=== PATIENT | female | born 1940 | race Caucasian/White ===

== ENCOUNTER 2021-05-11 18:27 | Inpatient (IN) ==
[2021-05-11] MEDS ORDERED: Gelfoam 12-7 ADSORBABL SPONGE TOPICAL ONE (19:04)
[2021-05-11 20:13] LABS: ABS Lymphocytes 0.3 10^3/ul (1.0-4.8); ABS Monocytes 0.3 10^3/ul (0-0.8); ABS Neutrophils 11.4 10^3/ul (1.5-7.7); Hematocrit 23 % (35-47); Hemoglobin 7.3 g/dL (12.0-16.0); Lymphocyte % 2.1 %; Mean Corpuscular HGB Conc 32 g/dL (31-36); Mean Corpuscular Hemoglobin 28 pg (27-31); Mean Corpuscular Volume 87 fL (80-97); Mean Platelet Volume 7.8 fL (7.4-10.4); Platelet Count 264 10^3/uL (150-450); Red Blood Count 2.64 10^6 /uL (3.70-4.87); Red Cell Distribution Width 19 % (10-15)
[2021-05-11] MEDS ORDERED: Furosemide 20 mg/2 ml IV VIAL IV SLOW PU ONE (21:47)
[2021-05-11 21:50] LABS: Calcium 8.3 mg/dL (8.6-10.3); Potassium 4.3 mmol/L (3.5-5.0); eGFR CKD-EPI 44.4 (>60)
[2021-05-11 22:55] LABS: Hematocrit 22 % (35-47); Hemoglobin 6.9 g/dL (12.0-16.0)
[2021-05-12 00:40] LABS: Albumin/Globulin Ratio 1.5 (1-3); Direct Bilirubin 2.6 mg/dL (0.03-0.18); Total Bilirubin 4.2 mg/dL (0.2-1.0)
[2021-05-12 00:41] LABS: C Reactive Protein 19.7 mg/L (<8.01); Indirect Bilirubin 1.6 mg/dL (0.3-1.0)
[2021-05-12 00:59] LABS: Ferritin 173.1 ng/mL (11-307)
[2021-05-12] MEDS ORDERED: Albuterol HFA INHALER 8 gm MDI INH PRN (02:23)
[2021-05-12 04:51] LABS: TSH Ultra Thyroid Stim Horm 3.05 mcIU/mL (0.34-5.60)
[2021-05-12] MEDS ORDERED: Dextrose 50% Syringe 50 ml 25 GM/50 ML SYRINGE IV PUSH PRN (05:29)
[2021-05-12 06:38] LABS: Hematocrit 25 % (35-47)
[2021-05-12 07:01] LABS: Albumin/Globulin Ratio 1.6 (1-3); Calcium 8.1 mg/dL (8.6-10.3); Globulin 1.9 g/dL (2-4); Potassium 3.9 mmol/L (3.5-5.0); Total Bilirubin 4.7 mg/dL (0.2-1.0); Total Protein 4.9 g/dL (6.4-8.9); eGFR CKD-EPI 40.1 (>60)
[2021-05-12 07:30] LABS: Corrected Retic Count 1.3 % (0.5-1.5); Hematocrit for Retic CNT 25 % (35-47); Immature Retic Fraction 0.52; RBC Retic Count 2.83 10^6/uL (3.70-4.87)
[2021-05-12 07:34] LABS: INR 1.16 (0.86-1.15)
[2021-05-12 07:51] LABS: Urine Appearance Turbid; Urine Bilirubin Negative (Negative); Urine Blood Negative (Negative); Urine Color Amber; Urine Glucose Negative (Negative); Urine Ketones Negative (Negative); Urine Nitrite Negative (Negative); Urine Protein 2+(100 mg/dL) (Negative); Urine Specific Gravity 1.016 (1.002-1.030); Urine Urobilinogen Negative (Negative)
[2021-05-12 08:01] LABS: Urine Bacteria 2+ (Absent); Urine Red Blood Cell 2+(6-10/hpf) (Absent); Urine Squamous Epithelial Cell Present (Absent); Urine White Blood Cell 3+(>20/hpf) (Absent)
[2021-05-12 12:31] LABS: Hepatitis B Surface Antigen Nonreactive (Nonreactive)
[2021-05-12 12:36] LABS: Hepatitis A Ab IgM Negative (Negative)
[2021-05-12 12:37] LABS: Hepatitis B Core IgM Nonreactive (Nonreactive)
[2021-05-12 12:48] LABS: Hepatitis C Antibody Negative (Negative)
[2021-05-12 14:28] LABS: Hematocrit 25 % (35-47)
[2021-05-12] MEDS ORDERED: Iodixanol (CONTRAST) 320 MG/ML 100 ML SDV IV ONE (16:01)
[2021-05-12 20:11] LABS: Hematocrit 24 % (35-47); Hemoglobin 7.6 g/dL (12.0-16.0)
[2021-05-12] MEDS ORDERED: NS 0.9% 1000 ml BAG 1,000 ML IV SCH (21:00)
[2021-05-13 02:07] LABS: Hematocrit 21 % (35-47); Hemoglobin 6.6 g/dL (12.0-16.0)
[2021-05-13] MEDS ORDERED: Morphine 2 MG/ML SYRINGE IV PRN (05:42)
[2021-05-13 09:36] LABS: ABS Eosinophils 0.1 10^3/ul (0-0.6); ABS Lymphocytes 0.8 10^3/ul (1.0-4.8); ABS Monocytes 0.7 10^3/ul (0-0.8); ABS Neutrophils 10.1 10^3/ul (1.5-7.7); Eosinophil % 0.6 %; Hematocrit 26 % (35-47); Hemoglobin 8.4 g/dL (12.0-16.0); Mean Corpuscular HGB Conc 32 g/dL (31-36); Mean Corpuscular Hemoglobin 28 pg (27-31); Mean Corpuscular Volume 87 fL (80-97); Mean Platelet Volume 7.7 fL (7.4-10.4); Nucleated Red Blood Cells % 0.1; Platelet Count 242 10^3/uL (150-450); Red Blood Count 2.98 10^6 /uL (3.70-4.87); Red Cell Distribution Width 18 % (10-15); White Blood Count 11.7 10^3/uL (3.5-10.8)
[2021-05-13 09:52] LABS: Albumin 2.9 g/dL (3.2-5.2); Albumin/Globulin Ratio 1.6 (1-3); Globulin 1.8 g/dL (2-4); Potassium 3.5 mmol/L (3.5-5.0); Total Bilirubin 4.7 mg/dL (0.2-1.0); Total Protein 4.7 g/dL (6.4-8.9); eGFR CKD-EPI 43.2 (>60)
[2021-05-13 15:25] LABS: % Iron Saturation 22 % (14 - 50); Total Iron Binding Capacity 274 mcg/dL (250 - 400)
[2021-05-14 06:10] LABS: ABS Basophils 0.1 10^3/ul (0-0.2); ABS Lymphocytes 0.6 10^3/ul (1.0-4.8); ABS Monocytes 0.6 10^3/ul (0-0.8); ABS Neutrophils 8.6 10^3/ul (1.5-7.7); Eosinophil % 0.5 %; Hematocrit 25 % (35-47); Hemoglobin 8.1 g/dL (12.0-16.0); Lymphocyte % 6.2 %; Mean Corpuscular HGB Conc 33 g/dL (31-36); Mean Corpuscular Hemoglobin 29 pg (27-31); Mean Corpuscular Volume 88 fL (80-97); Mean Platelet Volume 8.2 fL (7.4-10.4); Nucleated Red Blood Cells % 0.2; Platelet Count 237 10^3/uL (150-450); Red Blood Count 2.86 10^6 /uL (3.70-4.87); Red Cell Distribution Width 18 % (10-15); White Blood Count 9.9 10^3/uL (3.5-10.8)
[2021-05-14 06:26] LABS: Albumin 2.8 g/dL (3.2-5.2); Albumin/Globulin Ratio 1.6 (1-3); Calcium 7.9 mg/dL (8.6-10.3); Direct Bilirubin 3.6 mg/dL (0.03-0.18); Globulin 1.7 g/dL (2-4); Potassium 3.7 mmol/L (3.5-5.0); Total Bilirubin 5.6 mg/dL (0.2-1.0); Total Protein 4.5 g/dL (6.4-8.9); eGFR CKD-EPI 48.2 (>60)
[2021-05-14] MEDS ORDERED: Potassium Chlor 10 meq TAB PO ONE (08:58)
[2021-05-14] MEDS: Cefepime 1 GM in Dextrose 1 GM/50 ML BAG IV SCH ×2 (12:43→20:40)
[2021-05-14] MEDS: Furosemide 40 mg/4 ml IV VIAL IV SLOW PU SCH (16:54)
[2021-05-14 17:22] LABS: Anisocytosis 1+
[2021-05-14 17:25] LABS: Polychromasia 1+
[2021-05-14 18:26] LABS: INR 0.97 (0.86-1.15)
[2021-05-14 18:27] LABS: Activated Partial Thrombo Time 28.2 seconds (26.0-38.0); Fibrinogen 363.2 mg/dL (110.8-404.3)
[2021-05-14 18:41] LABS: Anaplasma phagocytophilum Negative (Negative); B. miyamotoi PCR, B Negative (Negative); Babesia divergens/MO-1 Negative (Negative); Babesia ducani Negative (Negative); Ehrlichia chaffeensis Negative (Negative); Ehrlichia ewingii/canis Negative (Negative); Ehrlichia muris eauclairensis Negative (Negative)
[2021-05-15 07:02] LABS: ABS Lymphocytes 0.7 10^3/ul (1.0-4.8); ABS Monocytes 0.5 10^3/ul (0-0.8); ABS Neutrophils 6.7 10^3/ul (1.5-7.7); Eosinophil % 0.3 %; Hematocrit 22 % (35-47); Hemoglobin 7.2 g/dL (12.0-16.0); Mean Corpuscular HGB Conc 33 g/dL (31-36); Mean Corpuscular Hemoglobin 29 pg (27-31); Mean Corpuscular Volume 88 fL (80-97); Mean Platelet Volume 7.9 fL (7.4-10.4); Nucleated Red Blood Cells % 0.1; Platelet Count 223 10^3/uL (150-450); Red Blood Count 2.47 10^6 /uL (3.70-4.87); Red Cell Distribution Width 18 % (10-15); White Blood Count 7.9 10^3/uL (3.5-10.8)
[2021-05-15 07:24] LABS: Albumin 2.6 g/dL (3.2-5.2); Albumin/Globulin Ratio 1.4 (1-3); Calcium 7.5 mg/dL (8.6-10.3); Globulin 1.9 g/dL (2-4); Indirect Bilirubin 2.1 mg/dL (0.3-1.0); Magnesium 1.7 mg/dL (1.9-2.7); Potassium 3.4 mmol/L (3.5-5.0); Total Bilirubin 5.1 mg/dL (0.2-1.0); Total Protein 4.5 g/dL (6.4-8.9); eGFR CKD-EPI 47.7 (>60)
[2021-05-15] MEDS: Furosemide 40 mg/4 ml IV VIAL IV SLOW PU SCH (09:27)
[2021-05-15] MEDS: Cefepime 1 GM in Dextrose 1 GM/50 ML BAG IV SCH ×2 (09:28→21:56)
[2021-05-15] MEDS ORDERED: Potassium Chlor 20 meq TAB.ER PO ONE (14:56)
[2021-05-16 06:13] LABS: Hematocrit 26 % (35-47); Hemoglobin 8.5 g/dL (12.0-16.0); Mean Corpuscular HGB Conc 33 g/dL (31-36); Mean Corpuscular Hemoglobin 28 pg (27-31); Mean Corpuscular Volume 87 fL (80-97); Mean Platelet Volume 7.4 fL (7.4-10.4); Platelet Count 244 10^3/uL (150-450); Red Blood Count 3.01 10^6 /uL (3.70-4.87); Red Cell Distribution Width 18 % (10-15); White Blood Count 8.5 10^3/uL (3.5-10.8)
[2021-05-16 06:30] LABS: Albumin 2.8 g/dL (3.2-5.2); Albumin/Globulin Ratio 1.5 (1-3); Calcium 7.7 mg/dL (8.6-10.3); Globulin 1.9 g/dL (2-4); Potassium 3.8 mmol/L (3.5-5.0); Total Bilirubin 5.1 mg/dL (0.2-1.0); Total Protein 4.7 g/dL (6.4-8.9); eGFR CKD-EPI 59.1 (>60)
[2021-05-16 06:36] LABS: Basophilic Stippling 1+; Polychromasia 1+
[2021-05-16 06:37] LABS: ABS Lymphocytes 0.8 10^3/ul (1.0-4.8); ABS Monocytes 0.5 10^3/ul (0-0.8); ABS Neutrophils 7.2 10^3/ul (1.5-7.7); Eosinophil % 0.4 %; Lymphocyte % 9.4 %; Nucleated Red Blood Cells % 0.1
[2021-05-16] MEDS ORDERED: Potassium Chlor 20 meq TAB.ER PO ONE (10:01)
[2021-05-16 10:26] LABS: Direct Bilirubin 2.7 mg/dL (0.03-0.18); Indirect Bilirubin 2.4 mg/dL (0.3-1.0); Magnesium 1.9 mg/dL (1.9-2.7)
[2021-05-16] MEDS: Furosemide 40 mg/4 ml IV VIAL IV SLOW PU SCH (10:30)
[2021-05-16] MEDS: Cefepime 1 GM in Dextrose 1 GM/50 ML BAG IV SCH ×2 (10:30→22:49)
[2021-05-16] MEDS ORDERED: Magnesium CITRATE LIQ 300 ML BTL PO ONE (18:26)
[2021-05-17 05:06] LABS: ABS Lymphocytes 0.4 10^3/ul (1.0-4.8); ABS Monocytes 0.4 10^3/ul (0-0.8); ABS Neutrophils 8.2 10^3/ul (1.5-7.7); Eosinophil % 0.1 %; Hematocrit 26 % (35-47); Hemoglobin 8.4 g/dL (12.0-16.0); Lymphocyte % 4.7 %; Mean Corpuscular HGB Conc 33 g/dL (31-36); Mean Corpuscular Hemoglobin 29 pg (27-31); Mean Corpuscular Volume 88 fL (80-97); Mean Platelet Volume 7.4 fL (7.4-10.4); Nucleated Red Blood Cells % 0.2; Platelet Count 242 10^3/uL (150-450); Red Blood Count 2.91 10^6 /uL (3.70-4.87); Red Cell Distribution Width 18 % (10-15); White Blood Count 9.1 10^3/uL (3.5-10.8)
[2021-05-17 05:23] LABS: Albumin 2.8 g/dL (3.2-5.2); Albumin/Globulin Ratio 1.5 (1-3); C Reactive Protein 16.99 mg/L (<8.01); Calcium 7.6 mg/dL (8.6-10.3); Direct Bilirubin 2.7 mg/dL (0.03-0.18); Globulin 1.9 g/dL (2-4); Magnesium 1.9 mg/dL (1.9-2.7); Phosphorus 2.8 mg/dL (2.5-5.0); Total Bilirubin 4.7 mg/dL (0.2-1.0); Total Protein 4.7 g/dL (6.4-8.9); eGFR CKD-EPI 65.5 (>60)
[2021-05-17] MEDS: Furosemide 40 mg/4 ml IV VIAL IV SLOW PU SCH (10:03)
[2021-05-17] MEDS: Cefepime 1 GM in Dextrose 1 GM/50 ML BAG IV SCH ×2 (10:04→21:25)
[2021-05-17 11:20] LABS: Coagulation Factor XI 119 % (55 - 150)
[2021-05-17 12:06] LABS: Coagulation Factor VIII Activi 361 % (55 - 200)
[2021-05-17 15:48] LABS: Coagulation F VIII Activity 368 % (55 - 200); von Willebrand Factor Activity 388 % (55 - 200)
[2021-05-17 20:56] LABS: Mitochondria M2 Antibody <0.1 U
[2021-05-18 07:21] LABS: ABS Lymphocytes 0.9 10^3/ul (1.0-4.8); ABS Monocytes 0.5 10^3/ul (0-0.8); ABS Neutrophils 6.8 10^3/ul (1.5-7.7); Eosinophil % 0.4 %; Hematocrit 26 % (35-47); Hemoglobin 8.5 g/dL (12.0-16.0); Lymphocyte % 10.6 %; Mean Corpuscular HGB Conc 32 g/dL (31-36); Mean Corpuscular Hemoglobin 29 pg (27-31); Mean Corpuscular Volume 89 fL (80-97); Mean Platelet Volume 7.6 fL (7.4-10.4); Platelet Count 236 10^3/uL (150-450); Red Blood Count 2.94 10^6 /uL (3.70-4.87); Red Cell Distribution Width 18 % (10-15); White Blood Count 8.1 10^3/uL (3.5-10.8)
[2021-05-18 07:39] LABS: ALT 324 U/L (7-52); AST 257 U/L (13-39); Albumin 2.9 g/dL (3.2-5.2); Albumin/Globulin Ratio 1.5 (1-3); Alkaline Phosphatase 870 U/L (35-149); Blood Urea Nitrogen 18 mg/dL (6-24); Calcium 7.9 mg/dL (8.6-10.3); Chloride 90 mmol/L (101-111); Globulin 1.9 g/dL (2-4); Glucose 87 mg/dL (70-100); Indirect Bilirubin 2.1 mg/dL (0.3-1.0); Magnesium 1.9 mg/dL (1.9-2.7); Potassium 3.7 mmol/L (3.5-5.0); Sodium 138 mmol/L (135-145); Total Protein 4.8 g/dL (6.4-8.9); eGFR CKD-EPI 90.7 (>60)
[2021-05-18 08:02] LABS: CO2 Carbon Dioxide 46 mmol/L (22-32)
[2021-05-18] MEDS: Furosemide 40 mg/4 ml IV VIAL IV SLOW PU SCH (11:05)
[2021-05-18] MEDS: Cefepime 1 GM in Dextrose 1 GM/50 ML BAG IV SCH ×2 (11:22→21:23)
[2021-05-18 11:57] LABS: Corrected Retic Count 2.4 % (0.5-1.5); Hematocrit for Retic CNT 28 % (35-47); Immature Retic Fraction 0.58; RBC Retic Count 3.12 10^6/uL (3.70-4.87)
[2021-05-18 13:41] LABS: Ferritin 114.5 ng/mL (11-307)
[2021-05-19 05:22] LABS: ABS Basophils 0.2 10^3/ul (0-0.2); ABS Eosinophils 0.1 10^3/ul (0-0.6); ABS Lymphocytes 0.8 10^3/ul (1.0-4.8); ABS Monocytes 0.4 10^3/ul (0-0.8); Eosinophil % 0.8 %; Hematocrit 25 % (35-47); Hemoglobin 8.3 g/dL (12.0-16.0); Lymphocyte % 10.3 %; Mean Corpuscular HGB Conc 33 g/dL (31-36); Mean Corpuscular Hemoglobin 29 pg (27-31); Mean Corpuscular Volume 89 fL (80-97); Mean Platelet Volume 7.5 fL (7.4-10.4); Nucleated Red Blood Cells % 0.1; Platelet Count 235 10^3/uL (150-450); Red Blood Count 2.87 10^6 /uL (3.70-4.87); Red Cell Distribution Width 18 % (10-15); White Blood Count 7.4 10^3/uL (3.5-10.8)
[2021-05-19 05:42] LABS: Albumin 2.7 g/dL (3.2-5.2); Albumin/Globulin Ratio 1.4 (1-3); Direct Bilirubin 1.7 mg/dL (0.03-0.18); Globulin 1.9 g/dL (2-4); Indirect Bilirubin 1.2 mg/dL (0.3-1.0); Magnesium 1.9 mg/dL (1.9-2.7); Potassium 3.8 mmol/L (3.5-5.0); Total Bilirubin 2.9 mg/dL (0.2-1.0); Total Protein 4.6 g/dL (6.4-8.9); eGFR CKD-EPI 91.8 (>60)
[2021-05-19] MEDS: Furosemide 40 mg/4 ml IV VIAL IV SLOW PU SCH (08:19)
[2021-05-19] MEDS ORDERED: Iohexol 300 (CONTRAST) 10 ML SDV IV ONE (08:43)
[2021-05-19] MEDS: Cefepime 1 GM in Dextrose 1 GM/50 ML BAG IV SCH ×2 (11:23→20:58)
[2021-05-19] MEDS ORDERED: Polyethylene Glycol 3350 17 GM PACKET PO PRN (13:11)
[2021-05-19] MEDS ORDERED: Senna TAB 8.6 mg TAB PO PRN (13:11)
[2021-05-19] MEDS ORDERED: Magnesium Hydroxide LIQ 30 ML UDC PO PRN (13:11)
[2021-05-19] MEDS: Nystatin TOP POWDER 15 GM BTL TOPICAL SCH ×2 (15:05→20:58)
[2021-05-19 16:19] LABS: % Iron Saturation 9 % (14 - 50); Total Iron Binding Capacity 306 mcg/dL (250 - 400)
[2021-05-19] MEDS: Enoxaparin 100 MG/ML SYR SUBCUT SCH (17:21)
[2021-05-19] MEDS: Magnesium Hydroxide LIQ 30 ML UDC PO SCH (20:58)
[2021-05-20] MEDS: Enoxaparin 100 MG/ML SYR SUBCUT SCH (05:02)
[2021-05-20] MEDS: Magnesium Hydroxide LIQ 30 ML UDC PO SCH ×2 (08:31→21:10)
[2021-05-20] MEDS: Nystatin TOP POWDER 15 GM BTL TOPICAL SCH ×3 (08:31→21:10)
[2021-05-20] MEDS: Cefepime 1 GM in Dextrose 1 GM/50 ML BAG IV SCH ×2 (08:32→21:10)
[2021-05-20] MEDS: Furosemide 40 mg/4 ml IV VIAL IV SLOW PU SCH (08:32)
[2021-05-20] MEDS ORDERED: Iron Sucrose 200 MG in NS 0.9% 100 ml BAG 100 ML IVPB ONE (10:42)
[2021-05-20 13:02] LABS: Albumin 2.7 g/dL (3.2-5.2); CO2 Carbon Dioxide 37 mmol/L (22-32); Chloride 93 mmol/L (101-111); Magnesium 1.8 mg/dL (1.9-2.7); Sodium 135 mmol/L (135-145)
[2021-05-20 13:08] LABS: ALT 299 U/L (7-52); Albumin/Globulin Ratio 1.2 (1-3); Alkaline Phosphatase 855 U/L (35-149); Blood Urea Nitrogen 12 mg/dL (6-24); Globulin 2.2 g/dL (2-4); Glucose 125 mg/dL (70-100); Total Protein 4.9 g/dL (6.4-8.9); eGFR CKD-EPI 91.4 (>60)
[2021-05-20 13:17] LABS: Anion Gap 5 mmol/L (2-11)
[2021-05-20] MEDS ORDERED: Magnesium Sulfate 2 gm BAG 2 GM/50 ML BAG IVPB ONE (13:35)
[2021-05-20 14:53] LABS: ABS Lymphocytes 0.3 10^3/ul (1.0-4.8); ABS Monocytes 0.2 10^3/ul (0-0.8); ABS Neutrophils 7.8 10^3/ul (1.5-7.7); Eosinophil % 0.1 %; Hematocrit 28 % (35-47); Hemoglobin 8.8 g/dL (12.0-16.0); Lymphocyte % 3.3 %; Mean Corpuscular HGB Conc 32 g/dL (31-36); Mean Corpuscular Hemoglobin 28 pg (27-31); Mean Corpuscular Volume 88 fL (80-97); Mean Platelet Volume 7.4 fL (7.4-10.4); Nucleated Red Blood Cells % 0.1; Platelet Count 261 10^3/uL (150-450); Red Blood Count 3.14 10^6 /uL (3.70-4.87); Red Cell Distribution Width 18 % (10-15); White Blood Count 8.3 10^3/uL (3.5-10.8)
[2021-05-20 15:21] LABS: Direct Bilirubin Redraw 2.1 mg/dL (0.03-0.18)
[2021-05-21 07:33] LABS: Hematocrit 28 % (35-47); Hemoglobin 8.9 g/dL (12.0-16.0); Mean Corpuscular HGB Conc 32 g/dL (31-36); Mean Corpuscular Hemoglobin 28 pg (27-31); Mean Corpuscular Volume 89 fL (80-97); Mean Platelet Volume 7.4 fL (7.4-10.4); Platelet Count 264 10^3/uL (150-450); Red Blood Count 3.18 10^6 /uL (3.70-4.87); Red Cell Distribution Width 19 % (10-15); White Blood Count 8.6 10^3/uL (3.5-10.8)
[2021-05-21 07:39] LABS: INR 0.99 (0.86-1.15)
[2021-05-21 07:47] LABS: Albumin 2.9 g/dL (3.2-5.2); Albumin/Globulin Ratio 1.4 (1-3); Calcium 8.4 mg/dL (8.6-10.3); Direct Bilirubin 1.4 mg/dL (0.03-0.18); Globulin 2.1 g/dL (2-4); Indirect Bilirubin 1.2 mg/dL (0.3-1.0); Magnesium 2.2 mg/dL (1.9-2.7); Potassium 3.5 mmol/L (3.5-5.0); Total Bilirubin 2.6 mg/dL (0.2-1.0); eGFR CKD-EPI 89.6 (>60)
[2021-05-21 08:39] LABS: ABS Basophils 0.1 10^3/ul (0-0.2); ABS Lymphocytes 0.9 10^3/ul (1.0-4.8); ABS Monocytes 0.4 10^3/ul (0-0.8); ABS Neutrophils 7.2 10^3/ul (1.5-7.7); Eosinophil % 0.1 %; Lymphocyte % 10.6 %; Nucleated Red Blood Cells % 0.3
[2021-05-21] MEDS: Magnesium Hydroxide LIQ 30 ML UDC PO SCH ×2 (08:54→21:23)
[2021-05-21] MEDS: Nystatin TOP POWDER 15 GM BTL TOPICAL SCH ×3 (10:33→21:23)
[2021-05-21] MEDS ORDERED: fentaNYL 100 mcg/2 ml 50 MCG/ML VIAL ONE (12:36)
[2021-05-21 13:33] LABS: Liver/Kidney Microsomes Ab <5.0 U
[2021-05-22] MEDS: Nystatin TOP POWDER 15 GM BTL TOPICAL SCH (08:29)
[2021-05-22] MEDS: Magnesium Hydroxide LIQ 30 ML UDC PO SCH (08:29)
[2021-05-22] MEDS ORDERED: Iron Sucrose 200 MG in NS 0.9% 100 ml BAG 100 ML IVPB SCH (11:00)
[2021-05-22 11:16] LABS: Hematocrit 29 % (35-47); Hemoglobin 9.1 g/dL (12.0-16.0); Mean Corpuscular HGB Conc 31 g/dL (31-36); Mean Corpuscular Hemoglobin 28 pg (27-31); Mean Corpuscular Volume 89 fL (80-97); Mean Platelet Volume 7.5 fL (7.4-10.4); Platelet Count 289 10^3/uL (150-450); Red Blood Count 3.25 10^6 /uL (3.70-4.87); Red Cell Distribution Width 19 % (10-15); White Blood Count 10.5 10^3/uL (3.5-10.8)
[2021-05-22 11:31] LABS: Albumin 3.1 g/dL (3.2-5.2); Albumin/Globulin Ratio 1.2 (1-3); Calcium 8.6 mg/dL (8.6-10.3); Globulin 2.5 g/dL (2-4); Magnesium 1.9 mg/dL (1.9-2.7); Potassium 3.3 mmol/L (3.5-5.0); Total Bilirubin 2.2 mg/dL (0.2-1.0); Total Protein 5.6 g/dL (6.4-8.9); eGFR CKD-EPI 79.2 (>60)
[2021-05-22 12:03] LABS: ABS Basophils 0.1 10^3/ul (0-0.2); ABS Lymphocytes 0.5 10^3/ul (1.0-4.8); ABS Monocytes 0.5 10^3/ul (0-0.8); ABS Neutrophils 9.4 10^3/ul (1.5-7.7); Eosinophil % 0.1 %; Lymphocyte % 5.2 %; Nucleated Red Blood Cells % 0.4
[2021-05-22 13:55] VITALS: BP 107/56
[2021-05-26 15:24] LABS: Soluble Liver Antigen IgG <20.1 U
== END 2021-05-22 14:00 | disposition home or self-care (01) | DRG 605 ==
LOC: ED 18:27 → EDHOLD 18:27 → SUATTDRO 23:54 → MEDTELE 05-12 11:52
PROVIDERS: ADMIT Internal Medicine; ATTEND Internal Medicine

== ENCOUNTER 2021-06-19 11:16 | Observation (INO) ==
[2021-06-19 12:29] LABS: INR 1.61 (0.86-1.15)
[2021-06-19 12:33] LABS: Albumin 2.5 g/dL (3.2-5.2); Albumin/Globulin Ratio 1.6 (1-3); Calcium 7.8 mg/dL (8.6-10.3); Globulin 1.6 g/dL (2-4); Total Bilirubin 1.5 mg/dL (0.2-1.0); Total Protein 4.1 g/dL (6.4-8.9)
[2021-06-19 13:29] LABS: ABS Lymphocytes 0.3 10^3/ul (1.0-4.8); ABS Monocytes 0.3 10^3/ul (0-0.8); Eosinophil % 0.1 %; Hematocrit 20 % (35-47); Hemoglobin 6.1 g/dL (12.0-16.0); Lymphocyte % 2.5 %; Mean Corpuscular HGB Conc 30 g/dL (31-36); Mean Corpuscular Hemoglobin 30 pg (27-31); Mean Corpuscular Volume 100 fL (80-97); Mean Platelet Volume 8.4 fL (7.4-10.4); Nucleated Red Blood Cells % 0.2; Platelet Count 148 10^3/uL (150-450); Red Blood Count 2.03 10^6 /uL (3.70-4.87); Red Cell Distribution Width 24 % (10-15); White Blood Count 12.7 10^3/uL (3.5-10.8)
[2021-06-19 13:32] LABS: Potassium 4.7 mmol/L (3.5-5.0)
[2021-06-19 17:12] LABS: C Reactive Protein 5.26 mg/L (<8.01)
[2021-06-19] MEDS ORDERED: Albuterol HFA INHALER 8 gm MDI INH PRN (19:15)
[2021-06-19] MEDS ORDERED: Magnesium Hydroxide LIQ 30 ML UDC PO PRN (19:15)
[2021-06-19] MEDS ORDERED: Dextrose 50% Syringe 50 ml 25 GM/50 ML SYRINGE IV PUSH PRN (19:19)
[2021-06-19 20:17] LABS: Urine Appearance Cloudy; Urine Bilirubin Negative (Negative); Urine Blood Negative (Negative); Urine Color Amber; Urine Glucose Negative (Negative); Urine Ketones Negative (Negative); Urine Nitrite Negative (Negative); Urine Protein Negative (Negative); Urine Specific Gravity 1.018 (1.002-1.030); Urine Urobilinogen Negative (Negative)
[2021-06-19 20:26] LABS: Urine Bacteria 2+ (Absent); Urine Red Blood Cell Absent (Absent); Urine Squamous Epithelial Cell Present (Absent); Urine White Blood Cell 2+(11-20/hpf) (Absent)
[2021-06-19 21:44] LABS: Hematocrit 21 % (35-47); Hemoglobin 6.8 g/dL (12.0-16.0)
[2021-06-19] MEDS: Polyethylene Glycol 3350 17 GM PACKET PO SCH (21:46)
[2021-06-20 03:29] LABS: Hematocrit 18 % (35-47); Hemoglobin 5.8 g/dL (12.0-16.0)
[2021-06-20] MEDS ORDERED: Buffered Lidocaine 1% SYRIN 1 ml INTRADERM ONE (07:34)
[2021-06-20 09:06] LABS: ABS Basophils 0.1 10^3/ul (0-0.2); ABS Eosinophils 0.1 10^3/ul (0-0.6); ABS Lymphocytes 1.1 10^3/ul (1.0-4.8); ABS Monocytes 0.5 10^3/ul (0-0.8); ABS Neutrophils 6.6 10^3/ul (1.5-7.7); Eosinophil % 0.9 %; Hematocrit 29 % (35-47); Hemoglobin 9.4 g/dL (12.0-16.0); Lymphocyte % 12.9 %; Mean Corpuscular HGB Conc 32 g/dL (31-36); Mean Corpuscular Hemoglobin 30 pg (27-31); Mean Corpuscular Volume 92 fL (80-97); Mean Platelet Volume 8.1 fL (7.4-10.4); Nucleated Red Blood Cells % 0.4; Platelet Count 131 10^3/uL (150-450); Red Blood Count 3.18 10^6 /uL (3.70-4.87); Red Cell Distribution Width 20 % (10-15); White Blood Count 8.3 10^3/uL (3.5-10.8)
[2021-06-20 09:13] LABS: Activated Partial Thrombo Time 30.7 seconds (26.0-38.0); INR 1.29 (0.86-1.15)
[2021-06-20 09:20] LABS: Calcium 7.7 mg/dL (8.6-10.3); Potassium 4.4 mmol/L (3.5-5.0); eGFR CKD-EPI 96.2 (>60)
[2021-06-20] MEDS: Cholecalciferol (VIT D3) 1,000 unit TAB PO SCH (10:10)
[2021-06-20] MEDS: Polyethylene Glycol 3350 17 GM PACKET PO SCH (10:41)
[2021-06-20 20:54] LABS: Hematocrit 27 % (35-47); Hemoglobin 8.8 g/dL (12.0-16.0)
[2021-06-21 05:56] LABS: ABS Lymphocytes 0.8 10^3/ul (1.0-4.8); ABS Monocytes 0.4 10^3/ul (0-0.8); ABS Neutrophils 6.3 10^3/ul (1.5-7.7); Eosinophil % 0.2 %; Hematocrit 27 % (35-47); Hemoglobin 8.6 g/dL (12.0-16.0); Lymphocyte % 10.1 %; Mean Corpuscular HGB Conc 32 g/dL (31-36); Mean Corpuscular Hemoglobin 30 pg (27-31); Mean Corpuscular Volume 94 fL (80-97); Mean Platelet Volume 8.2 fL (7.4-10.4); Nucleated Red Blood Cells % 0.3; Platelet Count 133 10^3/uL (150-450); Red Blood Count 2.87 10^6 /uL (3.70-4.87); Red Cell Distribution Width 21 % (10-15); White Blood Count 7.5 10^3/uL (3.5-10.8)
[2021-06-21 06:02] LABS: INR 1.07 (0.86-1.15)
[2021-06-21 06:13] LABS: Potassium 4.7 mmol/L (3.5-5.0)
[2021-06-21] MEDS: Cholecalciferol (VIT D3) 1,000 unit TAB PO SCH (09:28)
[2021-06-21] MEDS: Polyethylene Glycol 3350 17 GM PACKET PO SCH (09:38)
[2021-06-21] MEDS ORDERED: Buffered Lidocaine 1% SYRIN 1 ml INTRADERM ONE (13:16)
[2021-06-21 13:23] LABS: Hematocrit 28 % (35-47); Hemoglobin 9.3 g/dL (12.0-16.0)
[2021-06-21 21:06] LABS: Rapid COVID-19 Molecular Undetected (Undetected)
[2021-06-22] MEDS: Polyethylene Glycol 3350 17 GM PACKET PO SCH (09:02)
[2021-06-22] MEDS: Cholecalciferol (VIT D3) 1,000 unit TAB PO SCH (09:02)
[2021-06-22 11:14] VITALS: BP 107/56
== END 2021-06-22 13:25 ==
LOC: EDHOLD 11:16 → ED 11:16 → SUATTDRO 16:44 → MED 19:37
PROVIDERS: ADMIT Internal Medicine; ATTEND Hospitalist